=== PATIENT | male | born 1975 | race Caucasian/White ===

== ENCOUNTER 2021-11-24 23:24 | Emergency (ER) | payer MEDICARE, MEDICAID ==
[~2021-11-24] VITALS: Ht 198.1 cm; Wt 207.6 kg
[~2021-11-24 23:24] MED LIST: CYCL10TA3 PO; DRON40TA PO; GABA250S PO; GABA300C2 PO; GLYB5TAB5 PO; IMIT50TA PO; JANU100T PO; METF500T PO; OMEP20CA3 PO; OMEPPOW18 XX; PERC7.5T12 PO; REQU1TAB16 PO; SLOWTAB3 PO; TRAZ150T PO; VICO5TAB PO; XARE20TA PO
[2021-11-24 23:30] VITALS: BP 149/76
[2021-11-24] MEDS ORDERED: LANTINJ4 SC (23:36)
[2021-11-24] MEDS ORDERED: BACL10TA2 PO (23:36)
[2021-11-25] MEDS ORDERED: methocarbamoL 750 MG TAB PO ONE (00:35)
[2021-11-25] MEDS ORDERED: LIDOCAINE 5% (LIDODERM) PATCH TD ONE (00:35)
[2021-11-25] MEDS ORDERED: **NOTE PATIENT COMMENT** MISC XX SCH (21:00)
== END 2021-11-25 01:10 | disposition home or self-care (01) ==
LOC: M ED 23:24
DX: M54.50 Low back pain, unspecified (principal); M25.562 Pain in left knee; Z53.9 Procedure and treatment not carried out, unspecified reason; I48.91 Unspecified atrial fibrillation; I10 Essential (primary) hypertension; G43.909 Migraine, unspecified, not intractable, without status migrainosus; F32.A Depression, unspecified; Z88.0 Allergy status to penicillin; Z79.84 Long term (current) use of oral hypoglycemic drugs; Z79.899 Other long term (current) drug therapy

== ENCOUNTER → 2022-12-15 | Outpatient (CLI) | payer MEDICARE, MEDICAID ==
[~2022-12-15] MED LIST changes: +BACL10TA2 PO; +LANTINJ4 SC
== END ==
LOC: M RAD 11:34
PROVIDERS: ATTEND Physician Assistant Medical
DX: R11.2 Nausea with vomiting, unspecified (principal); R10.13 Epigastric pain
CPT/HCPCS: 78264; A9541

== ENCOUNTER → 2023-10-05 | Outpatient (CLI) | payer MEDICARE, MEDICAID ==
[~2023-10-05] MED LIST changes: +ALBU8.5H INH; +ALEV220T22 PO; +BENZ200C70 PO; +DRON400T PO; +FAMO1TAB11 PO; +IMIT6KIT SC; +INSUHUMDS SC; +JARD1TAB PO; +LYRI200C PO; +MAGN64TASA PO; +METF500T13 PO; +METHACHOLINE KIT INH ONE; +METO25TA4 PO; +ONDA-83 PO; +OXYC10TA3 PO; +PANT40TA29 PO; +PRED20TA PO; +ROPI3TAB18 PO; +SUMA100T2 PO; +SYMB16INH INH; +TOPI100T9 PO; +TRAZ1TAB14 PO; +XARE10TA PO
[2023-10-11 16:22] LABS: ASPERGILLUS FUMIGATUS AB Negative (Negative); AUREOBASIDIUM PULLULANS Negative (Negative); MICROPOLYSPORA FAENI AB Negative (Negative); PIGEON SERUM AB Negative (Negative); THERMOACTINOMYCES SACCHARI Negative (Negative); THERMOACTINOMYCES VULGARIS Negative (Negative)
== END ==
LOC: M CARPUL 14:56
PROVIDERS: ATTEND Nurse Practitioner Family
DX: R91.8 Other nonspecific abnormal finding of lung field (principal); R09.02 Hypoxemia; R05.9 Cough, unspecified

== ENCOUNTER 2023-10-08 06:18 | Day surgery (SDC) | payer MEDICARE, MEDICAID ==
[~2023-10-08] VITALS: Ht 198.1 cm; Wt 184.2 kg
[~2023-10-08 06:18] MED LIST changes: -METHACHOLINE KIT INH ONE
[2023-10-08] MEDS ORDERED: LR 1,000 ML IV SCH ×2 (06:40→10:00)
[2023-10-08] MEDS ORDERED: ROCURONIUM BROMIDE 50MG/5ML VIAL As Ordered ONE (07:10)
[2023-10-08] MEDS ORDERED: LIDOCAINE 2% 100MG/5ML SDV (FOR ANES.) As Ordered ONE (07:10)
[2023-10-08] MEDS ORDERED: SUGAMMADEX SODIUM 500 MG/5 ML VIAL (BRIDION) As Ordered ONE (07:10)
[2023-10-08] MEDS ORDERED: propofoL 200 MG/20 ML VIAL As Ordered ONE ×2 (07:10→08:25)
[2023-10-08] MEDS ORDERED: ONDANSETRON 4MG 2ML VIAL As Ordered ONE (07:11)
[2023-10-08] MEDS ORDERED: MIDAZOLAM INJ 2MG/2ML VIAL As Ordered ONE (07:14)
[2023-10-08] MEDS ORDERED: fentaNYL 100 MCG/2 ML INJECTION As Ordered ONE ×2 (07:15→09:14)
[2023-10-08] MEDS ORDERED: LIDOCAINE W/EPINEPHRINE 1% 20ML VIAL As Ordered ONE (08:21)
[2023-10-08] MEDS ORDERED: dexmedeTOMIDine (4MCG/ML)200MCG/50ML BTL (PRECEDEX) As Ordered ONE (08:53)
[2023-10-08] MEDS ORDERED: ACETAMINOPHEN 1000MG 100ML IV BAG As Ordered ONE ×2 (08:54→10:20)
[2023-10-08] MEDS ORDERED: ONDANSETRON 4MG 2ML VIAL IV PRN (10:00)
[2023-10-08] MEDS ORDERED: fentaNYL 100 MCG/2 ML INJECTION IV PRN (10:00)
[2023-10-08] MEDS ORDERED: oxyCODONE 5MG TAB PO PRN (10:00)
[2023-10-08] MEDS ORDERED: HYDROMORPHONE HCL 0.5 MG/ 0.5 ML SYRINGE IV PRN (10:00)
[2023-10-08 11:45] VITALS: BP 153/84; TEMP 97.9; O2SAT 97
== END 2023-10-08 11:45 | disposition home or self-care (01) ==
LOC: M SDC 06:18
PROVIDERS: ATTEND Dentist Oral and Maxillofacial Surgery
DX: K02.9 Dental caries, unspecified (principal); I48.91 Unspecified atrial fibrillation; I10 Essential (primary) hypertension; E10.43 Type 1 diabetes mellitus with diabetic autonomic (poly)neuropathy; K31.84 Gastroparesis; Z79.84 Long term (current) use of oral hypoglycemic drugs; Z79.899 Other long term (current) drug therapy; Z79.4 Long term (current) use of insulin; Z88.0 Allergy status to penicillin; G47.30 Sleep apnea, unspecified; Z79.01 Long term (current) use of anticoagulants; Z87.891 Personal history of nicotine dependence
CPT/HCPCS: 88300; D7140; D9223; J0131; J1100; J2250; J2405; J3010

== ENCOUNTER → 2023-10-14 | Outpatient (CLI) | payer MEDICARE, MEDICAID ==
[~2023-10-14] MED LIST changes: +METHACHOLINE KIT INH ONE
== END ==
LOC: M CARPUL 14:51
PROVIDERS: ATTEND Nurse Practitioner Family
DX: R06.02 Shortness of breath (principal); R05.9 Cough, unspecified
CPT/HCPCS: 94070; 95070; J7674

== ENCOUNTER 2023-12-26 17:38 | Emergency (ER) | payer MEDICARE, MEDICAID ==
[~2023-12-26] VITALS: Ht 198.1 cm; Wt 190.0 kg
[~2023-12-26 17:38] MED LIST changes: -METHACHOLINE KIT INH ONE
[2023-12-26] MEDS: NS 1,000 ML IV ONE (19:14)
[2023-12-26] MEDS: MORPHINE 4 MG/ML 1ML VIAL IV ONE (19:15)
[2023-12-26] MEDS: ONDANSETRON 4MG 2ML VIAL IV ONE (19:15)
[2023-12-26 19:18] LABS: HEMOGLOBIN 12.2 g/dl (13.5-17.5); WHITE BLOOD COUNT 9.2 10^3/uL (4.0-10.0)
[2023-12-26 19:19] LABS: BASO # 0.1 10^3/uL (0.0-0.2); BASO % 0.9 % (0.0-1.0); EOS # 0.1 10^3/uL (0.0-0.5); HEMATOCRIT 42.2 % (42.0-52.0); LYMPH # 2.1 10^3/uL (1.5-5.0); LYMPH % 22.5 % (24.0-44.0); MEAN CORPUSCULAR HEMOGLOBIN 19.7 pg (27.0-33.0); MEAN CORPUSCULAR HGB CONC 28.9 g/dl (32.0-36.5); MEAN CORPUSCULAR VOLUME 68.1 fl (80.0-96.0); MONO # 0.8 10^3/uL (0.0-0.8); MONO % 8.1 % (2.0-8.0); NEUTROPHILS # 6.2 10^3/uL (1.5-8.5); NEUTROPHILS % 67.3 % (36.0-66.0); PLATELET COUNT, AUTOMATED 222 10^3/uL (150-450)
[2023-12-26 19:37] LABS: LIPASE 41 U/L (12-53)
[2023-12-26 19:40] LABS: ALBUMIN 3.9 G/DL (3.2-5.2); ALKALINE PHOSPHATASE 66 U/L (46-116); ALT/SGPT 14 U/L (7.0-40); AST/SGOT 22 U/L (<34); BILIRUBIN,DIRECT 0.2 MG/DL (<0.4); BILIRUBIN,TOTAL 0.4 MG/DL (0.3-1.2); BLOOD UREA NITROGEN 12 MG/DL (9-23); CALCIUM LEVEL 9.2 MG/DL (8.5-10.1); CARBON DIOXIDE LEVEL 18 MMOL/L (20-31); CHLORIDE LEVEL 112 MMOL/L (98-107); CREATININE FOR GFR 1.03 MG/DL (0.70-1.30); GLOMERULAR FILTRATION RATE > 60.0 (>60); GLUCOSE, FASTING 140 MG/DL (60-100); POTASSIUM SERUM 3.9 MMOL/L (3.5-5.1); SODIUM LEVEL 139 MMOL/L (136-145); TOTAL PROTEIN 7.1 G/DL (5.7-8.2)
[2023-12-26] MEDS ORDERED: ISOVUE-370 76% 100ML VIAL As Ordered ONE (19:50)
[2023-12-26 20:51] VITALS: BP 133/87; TEMP 96.3; O2SAT 100
[2023-12-26] MEDS ORDERED: LIDO5DIS41 TOP (21:01)
[2023-12-26] MEDS ORDERED: METH-1165 PO (21:01)
[2023-12-26] MEDS: LIDOCAINE 5% (LIDODERM) PATCH TD ONE (21:09)
== END 2023-12-26 21:13 | disposition home or self-care (01) ==
LOC: M ED 17:38
DX: M54.32 Sciatica, left side (principal); M54.50 Low back pain, unspecified; I10 Essential (primary) hypertension; E11.9 Type 2 diabetes mellitus without complications; F41.9 Anxiety disorder, unspecified; F32.A Depression, unspecified; F12.10 Cannabis abuse, uncomplicated; Z87.891 Personal history of nicotine dependence; Z86.79 Personal history of other diseases of the circulatory system; Z79.52 Long term (current) use of systemic steroids; Z79.4 Long term (current) use of insulin; Z79.899 Other long term (current) drug therapy; Z79.1 Long term (current) use of non-steroidal anti-inflammatories (NSAID)
CPT/HCPCS: 74177; 80048; 80076; 81001; 83690; 85025; 96361; 96374; 99284; J2405; Q9967

== ENCOUNTER → 2024-02-09 | Outpatient (CLI) | payer MEDICARE, MEDICAID ==
[~2024-02-09] MED LIST changes: +LIDO5DIS41 TOP; +METH-1165 PO
[2024-02-09 15:57] LABS: IMMUNOGLOBULIN A 370.1 MG/DL (40-350); IMMUNOGLOBULIN G 1170 MG/DL (650-1600)
== END ==
LOC: M LAB 14:10
PROVIDERS: ATTEND Nurse Practitioner Family
DX: J47.9 Bronchiectasis, uncomplicated (principal)

== ENCOUNTER 2024-03-13 15:02 | Emergency (ER) | payer MEDICARE, MEDICAID ==
[~2024-03-13] VITALS: Ht 198.1 cm; Wt 180.1 kg
[2024-03-13 15:04] VITALS: BP 141/86; TEMP 96.8; O2SAT 98
== END 2024-03-13 17:15 | disposition left against medical advice (07) ==
LOC: M ED 15:02
DX: Z53.21 Procedure and treatment not carried out due to patient leaving prior to being seen by health care provider (principal)

== ENCOUNTER 2024-07-06 11:37 | Emergency (ER) | payer MEDICARE, MEDICAID ==
[~2024-07-06] VITALS: Ht 198.1 cm; Wt 213.8 kg
[2024-07-06 11:41] VITALS: BP 140/90; TEMP 96.6; O2SAT 96
== END 2024-07-06 11:54 | disposition left against medical advice (07) ==
LOC: M ED 11:37
DX: Z53.21 Procedure and treatment not carried out due to patient leaving prior to being seen by health care provider (principal)

== ENCOUNTER 2024-07-13 18:43 | Emergency (ER) | payer MEDICARE, MEDICAID ==
[~2024-07-13] VITALS: Ht 198.1 cm; Wt 214.9 kg
[2024-07-13 22:36] LABS: VENOUS BASE EXCESS -1.4 (-2.0-2.0); VENOUS HCO3 24.7 MMOL/L (23.0-27.0); VENOUS PARTIAL PRESSURE CO2 46.5 mmHg (38.0-50.0); VENOUS PARTIAL PRESSURE O2 51.9 mmHg (30.0-50.0); VENOUS PH 7.343 UNITS (7.330-7.430); VENOUS STANDARD HCO3 23.1 MMOL/L; VENOUS TOTAL CO2 26.1 MMOL/L (24.0-28.0)
[2024-07-13 22:41] LABS: BASO # 0.1 10^3/uL (0.0-0.2); BASO % 1.2 % (0.0-1.0); EOS # 0.3 10^3/uL (0.0-0.5); EOS % 4.3 % (0.0-3.0); HEMATOCRIT 47.1 % (42.0-52.0); HEMOGLOBIN 14.3 g/dl (13.5-17.5); LYMPH # 1.9 10^3/uL (1.5-5.0); MEAN CORPUSCULAR HEMOGLOBIN 24.6 pg (27.0-33.0); MEAN CORPUSCULAR HGB CONC 30.4 g/dl (32.0-36.5); MEAN CORPUSCULAR VOLUME 81.1 fl (80.0-96.0); MONO # 0.4 10^3/uL (0.0-0.8); MONO % 6.5 % (2.0-8.0); NEUTROPHILS % 59.7 % (36.0-66.0); PLATELET COUNT, AUTOMATED 171 10^3/uL (150-450); RED BLOOD COUNT 5.81 10^6/uL (4.30-6.10); WHITE BLOOD COUNT 6.8 10^3/uL (4.0-10.0)
[2024-07-13 22:53] LABS: INR 1.32
[2024-07-13 23:13] LABS: ALBUMIN 3.5 G/DL (3.2-5.2); ALKALINE PHOSPHATASE 72 U/L (46-116); ALT/SGPT 14 U/L (7.0-40); AST/SGOT 23 U/L (<34); BILIRUBIN,DIRECT 0.1 MG/DL (<0.4); BILIRUBIN,TOTAL 0.4 MG/DL (0.3-1.2); BLOOD UREA NITROGEN 13 MG/DL (9-23); CARBON DIOXIDE LEVEL 26 MMOL/L (20-31); CHLORIDE LEVEL 111 MMOL/L (98-107); CREATININE FOR GFR 0.87 MG/DL (0.70-1.30); GLOMERULAR FILTRATION RATE > 60.0 (>60); GLUCOSE, FASTING 135 MG/DL (60-100); MAGNESIUM LEVEL 1.7 MG/DL (1.8-2.4); POTASSIUM SERUM 4.7 MMOL/L (3.5-5.1); SODIUM LEVEL 142 MMOL/L (136-145); TOTAL PROTEIN 6.8 G/DL (5.7-8.2)
[2024-07-13 23:16] LABS: THYROID STIMULATING HORMONE 3.132 uIU/ML (0.55-4.78)
[2024-07-13] MEDS: LIDOCAINE 1% MDV 20ML VIAL SC ONE (23:42)
[2024-07-13] MEDS: METOPROLOL TART 25 MG TABLET PO ONE (23:43)
[2024-07-13] MEDS: RIVAROXABAN 20MG TAB (XARELTO) PO ONE (23:43)
[2024-07-13] MEDS: MAGNESIUM OXIDE 400MG TAB (MAG-OX) PO ONE (23:43)
[2024-07-13] MEDS: DRONEDARONE 400 MG TAB (MULTAQ) PO ONE (23:54)
[2024-07-14 00:03] LABS: THYROXINE (T4) 11.5 UG/DL (4.5-10.9)
[2024-07-14 00:06] LABS: CPK CREATINE PHOSPHOKINASE 160 U/L (46-171); MB/CK RELATIVE INDEX 1.87 (< OR =4)
[2024-07-14 00:11] VITALS: TEMP 97.6
[2024-07-14] MEDS: BOOSTRIX VACCINE (TETANUS/DIPHTH/ACEL. PERTUSSIS) 0.5ML SYR IM ONE (00:20)
[2024-07-14 01:01] VITALS: BP 144/76; O2SAT 98
[2024-07-14] MEDS ORDERED: LEVO1TAB40 PO (01:21)
[2024-07-14] MEDS: LevoFLOXacin 750 MG TABLET PO ONE (01:32)
== END 2024-07-14 01:17 | disposition home or self-care (01) ==
LOC: M ED 18:43
DX: S61.412A Laceration without foreign body of left hand, initial encounter (principal); J18.9 Pneumonia, unspecified organism; I48.20 Chronic atrial fibrillation, unspecified; R60.9 Edema, unspecified; E11.9 Type 2 diabetes mellitus without complications; I10 Essential (primary) hypertension; K21.9 Gastro-esophageal reflux disease without esophagitis; J45.909 Unspecified asthma, uncomplicated; G47.30 Sleep apnea, unspecified; G43.909 Migraine, unspecified, not intractable, without status migrainosus; F41.9 Anxiety disorder, unspecified; F32.A Depression, unspecified; F12.10 Cannabis abuse, uncomplicated; F10.10 Alcohol abuse, uncomplicated; Z88.0 Allergy status to penicillin; Z86.79 Personal history of other diseases of the circulatory system; Z23 Encounter for immunization; Z79.52 Long term (current) use of systemic steroids; Z79.4 Long term (current) use of insulin; Z79.899 Other long term (current) drug therapy; W26.8XXA Contact with other sharp object(s), not elsewhere classified, initial encounter; Y92.009 Unspecified place in unspecified non-institutional (private) residence as the place of occurrence of the external cause; Y93.89 Activity, other specified; Y99.9 Unspecified external cause status

== ENCOUNTER → 2024-11-07 | Outpatient (CLI) | payer MEDICARE, MEDICAID ==
[~2024-11-07] MED LIST changes: +E-Z-GAS II EFFERVESCENT PACKET (SODIUM BICARB./CITRIC ACID/SIMETHICONE) As Ordered ONE; +E-Z-HD 98% w/w 340GM SUSP BTL As Ordered ONE; +E-Z-PAQUE 96% w/w SUSP 176GM BTL As Ordered ONE; +LEVO1TAB40 PO
== END ==
LOC: M RAD 07:46
PROVIDERS: ATTEND Physician Assistant Medical
DX: R11.2 Nausea with vomiting, unspecified (principal); Z53.9 Procedure and treatment not carried out, unspecified reason

== ENCOUNTER → 2024-12-18 | Outpatient (REF) | payer MEDICARE, MEDICAID ==
[~2024-12-18] MED LIST changes: -E-Z-GAS II EFFERVESCENT PACKET (SODIUM BICARB./CITRIC ACID/SIMETHICONE) As Ordered ONE; -E-Z-HD 98% w/w 340GM SUSP BTL As Ordered ONE; -E-Z-PAQUE 96% w/w SUSP 176GM BTL As Ordered ONE
== END ==
LOC: M SFHCPLAZ 14:48
PROVIDERS: ATTEND Physician Assistant Medical
DX: R30.0 Dysuria (principal)

== ENCOUNTER 2025-02-12 12:43 | Emergency (ER) | payer MEDICARE, MEDICAID ==
[~2025-02-12] VITALS: Ht 198.1 cm; Wt 204.1 kg
[~2025-02-12 12:43] MED LIST changes: +LIDO1ADH93 TOP; -LIDO5DIS41 TOP; +TOPI-257 PO; -TOPI100T9 PO
[2025-02-12 14:16] LABS: VENOUS BASE EXCESS -3.1 (-2.0-2.0); VENOUS HCO3 22.1 MMOL/L (23.0-27.0); VENOUS O2 SATURATION 89.7 % (60.0-80.0); VENOUS PARTIAL PRESSURE CO2 40.2 mmHg (38.0-50.0); VENOUS PARTIAL PRESSURE O2 57.6 mmHg (30.0-50.0); VENOUS PH 7.358 UNITS (7.330-7.430); VENOUS STANDARD HCO3 21.7 MMOL/L; VENOUS TOTAL CO2 23.3 MMOL/L (24.0-28.0)
[2025-02-12 14:19] LABS: BASO # 0.1 10^3/uL (0.0-0.2); BASO % 0.6 % (0.0-1.0); EOS % 0.2 % (0.0-3.0); HEMATOCRIT 51.3 % (42.0-52.0); LYMPH # 1.7 10^3/uL (1.5-5.0); LYMPH % 15.9 % (24.0-44.0); MEAN CORPUSCULAR HEMOGLOBIN 28.2 pg (27.0-33.0); MEAN CORPUSCULAR HGB CONC 33.1 g/dl (32.0-36.5); MEAN CORPUSCULAR VOLUME 85.1 fl (80.0-96.0); MONO # 0.5 10^3/uL (0.0-0.8); MONO % 4.6 % (2.0-8.0); NEUTROPHILS # 8.1 10^3/uL (1.5-8.5); NEUTROPHILS % 78.2 % (36.0-66.0); PLATELET COUNT, AUTOMATED 156 10^3/uL (150-450); RED BLOOD COUNT 6.03 10^6/uL (4.30-6.10); WHITE BLOOD COUNT 10.4 10^3/uL (4.0-10.0)
[2025-02-12 14:21] LABS: APPEARANCE, URINE CLEAR (CLEAR); BACTERIA, URINE AUTO NEGATIVE (NEGATIVE); BILIRUBIN, URINE AUTO NEGATIVE (NEGATIVE); BLOOD, URINE BLOOD 1+ (NEGATIVE); COLOR, URINE YELLOW (YELLOW); GLUCOSE, URINE (UA) AUTO 3+ mg/dL (NEGATIVE); KETONE, URINE AUTO 2+ mg/dL (NEGATIVE); LEUKOCYTE ESTERASE, URINE AUTO NEGATIVE (NEGATIVE); NITRITE, URINE AUTO NEGATIVE (NEGATIVE); PROTEIN, URINE AUTO NEGATIVE (NEGATIVE); RBC, URINE AUTO 0 /HPF (0-3); SPECIFIC GRAVITY URINE AUTO 1.035 (1.002-1.035); SQUAMOUS EPITHELIAL CELL UR AU 0 /HPF (0-6); UROBILINOGEN, URINE AUTO 0.2 mg/dL (0.0-2.0); WBC, URINE AUTO 0 /HPF (0-3)
[2025-02-12 14:42] LABS: ALBUMIN 3.8 G/DL (3.2-5.2); ALKALINE PHOSPHATASE 72 U/L (40-129); ALT/SGPT 14 U/L (7.0-40); AST/SGOT 17 U/L (<34); BILIRUBIN,DIRECT 0.2 MG/DL (<0.4); BILIRUBIN,TOTAL 0.6 MG/DL (0.3-1.2); BLOOD UREA NITROGEN 13 MG/DL (9-23); CALCIUM LEVEL 9.5 MG/DL (8.5-10.1); CARBON DIOXIDE LEVEL 23 MMOL/L (20-31); CHLORIDE LEVEL 105 MMOL/L (98-107); CREATININE FOR GFR 0.95 MG/DL (0.70-1.30); GLOMERULAR FILTRATION RATE > 90.0 (>56); GLUCOSE, FASTING 148 MG/DL (60-100); SODIUM LEVEL 140 MMOL/L (136-145); TOTAL PROTEIN 7.2 G/DL (5.7-8.2)
[2025-02-12 15:43] LABS: LIPASE 24 U/L (12-53)
[2025-02-12] MEDS ORDERED: ISOVUE-370 76% 100ML VIAL As Ordered ONE (15:45)
[2025-02-12] MEDS: NS 500 ML IV ONE (15:57)
[2025-02-12] MEDS: FAMOTIDINE 20MG/2ML VIAL IVP ONE (15:57)
[2025-02-12] MEDS: PROMETHAZINE 25MG/ML 1ML VIAL IV ONE (15:57)
[2025-02-12 16:14] LABS: HEMOGLOBIN A1c 7.7 % (4.0-6.0)
[2025-02-12] MEDS: DICYCLOMINE INJ 20MG/2ML IM ONE (17:08)
[2025-02-12] MEDS ORDERED: ONDA-282 PO (17:59)
[2025-02-12] MEDS ORDERED: SUCR1SS PO (17:59)
[2025-02-12 18:07] VITALS: BP 141/95; TEMP 96.3; O2SAT 96
== END 2025-02-12 18:15 | disposition home or self-care (01) ==
LOC: M ED 12:43
DX: K31.84 Gastroparesis (principal); I51.7 Cardiomegaly; J44.9 Chronic obstructive pulmonary disease, unspecified; E78.5 Hyperlipidemia, unspecified; I10 Essential (primary) hypertension; E11.9 Type 2 diabetes mellitus without complications; Z86.79 Personal history of other diseases of the circulatory system; Z88.0 Allergy status to penicillin; Z79.52 Long term (current) use of systemic steroids; Z79.899 Other long term (current) drug therapy; Z79.4 Long term (current) use of insulin; Z79.83 Long term (current) use of bisphosphonates
CPT/HCPCS: 71045; 74177; 80048; 80076; 81001; 82803; 83036; 83605; 83690; 85025; 96361; 96372; 96374; 99284; J0500; J1308; J2550; Q9967

== ENCOUNTER → 2025-05-14 | Outpatient (CLI) | payer MEDICARE, MEDICAID ==
[~2025-05-14] MED LIST changes: +ONDA-282 PO; +SUCR1SS PO
== END ==
LOC: M PLAIMG 13:37
PROVIDERS: ATTEND Family Medicine
DX: M53.3 Sacrococcygeal disorders, not elsewhere classified (principal)

== ENCOUNTER → 2025-07-25 | Outpatient (CLI) | payer MEDICARE, MEDICAID | LOC: M PLAIMG 16:00 | PROVIDERS: ATTEND Nurse Practitioner Family | DX: M96.1 Postlaminectomy syndrome, not elsewhere classified (principal) ==

== ENCOUNTER → 2025-08-06 | Outpatient (CLI) | payer MEDICARE, MEDICAID | LOC: M PLAIMG 14:33 | PROVIDERS: ATTEND Physician Assistant | DX: J47.9 Bronchiectasis, uncomplicated (principal) ==

== ENCOUNTER → 2025-08-29 | Outpatient (CLI) | payer MEDICARE, MEDICAID | LOC: M RAD 14:35 | PROVIDERS: ATTEND Nurse Practitioner Family | DX: M16.0 Bilateral primary osteoarthritis of hip (principal); M51.362 Other intervertebral disc degeneration, lumbar region with discogenic back pain and lower extremity pain; M43.16 Spondylolisthesis, lumbar region ==

== ENCOUNTER 2025-09-22 14:12 | Emergency (ER) | payer MEDICARE, MEDICAID ==
[~2025-09-22] VITALS: Ht 198.1 cm; Wt 200.0 kg
[2025-09-22 15:11] LABS: BASO # 0.1 10^3/uL (0.0-0.2); BASO % 0.6 % (0.0-1.0); EOS # 0.0 10^3/uL (0.0-0.5); EOS % 0.0 % (0.0-3.0); LYMPH # 1.9 10^3/uL (1.5-5.0); LYMPH % 12.5 % (24.0-44.0); MONO # 0.5 10^3/uL (0.0-0.8); MONO % 3.6 % (2.0-8.0); NEUTROPHILS # 12.3 10^3/uL (1.5-8.5); NEUTROPHILS % 83.0 % (36.0-66.0); PLATELET COUNT, AUTOMATED 203 10^3/uL (150-450)
[2025-09-22 15:38] LABS: ALT/SGPT 15.0 U/L (7.0-40); AST/SGOT 26.0 U/L (<34); CALCIUM LEVEL 9.5 MG/DL (8.5-10.1); CARBON DIOXIDE LEVEL 13.0 MMOL/L (20-31); CHLORIDE LEVEL 102.0 MMOL/L (98-107); CREATININE FOR GFR 1.1 MG/DL (0.70-1.30); GLOMERULAR FILTRATION RATE 81.8 (>56); POTASSIUM SERUM 4.6 MMOL/L (3.5-5.1); SODIUM LEVEL 136.0 MMOL/L (136-145)
[2025-09-22] MEDS: NS (Normal Saline) 0.9% 1,000 ML IV ONE ×3 (15:55→18:45)
[2025-09-22] MEDS: ONDANSETRON 4MG/2ML VIAL IV ONE (15:55)
[2025-09-22] MEDS ORDERED: ISOVUE-370 76% 100 ML VIAL As Ordered ONE (16:56)
[2025-09-22] MEDS: KETOROLAC 30 MG/ML 1 ML VIAL IV ONE (16:59)
[2025-09-22] MEDS: ACETAMINOPHEN *IV* 1,000 MG in IV 1 EA IV ONE (18:45)
[2025-09-22 20:34] LABS: KETONE, URINE AUTO RFX 2+ mg/dL (NEGATIVE); LEUKOCYTE ESTERASE UR AUTO RFX NEGATIVE (NEGATIVE); NITRITE, URINE AUTO RFX NEGATIVE (NEGATIVE); RBC, URINE AUTO RFX 0 /HPF (0-3); SQUAM EPITHELIAL CELL UR AURFX 0 /HPF (0-6); WBC, URINE AUTO RFX 0 /HPF (0-3)
[2025-09-22 22:04] LABS: CALCIUM LEVEL 8.2 MG/DL (8.5-10.1); CARBON DIOXIDE LEVEL 17.0 MMOL/L (20-31); CHLORIDE LEVEL 108.0 MMOL/L (98-107); CREATININE FOR GFR 1.13 MG/DL (0.70-1.30); GLOMERULAR FILTRATION RATE 79.2 (>56); POTASSIUM SERUM 5.5 MMOL/L (3.5-5.1); SODIUM LEVEL 140.0 MMOL/L (136-145)
[2025-09-22] MEDS ORDERED: REGL10TA6 PO (22:12)
[2025-09-22 22:19] VITALS: BP 137/67; TEMP 98.6; O2SAT 100
[2025-09-28 10:36] LABS: SOFIA COVID ANTIGEN NEGATIVE (NEGATIVE)
== END 2025-09-22 22:21 | disposition home or self-care (01) ==
LOC: M ED 15:21
DX: R10.9 Unspecified abdominal pain (principal); R11.2 Nausea with vomiting, unspecified; I48.91 Unspecified atrial fibrillation; I10 Essential (primary) hypertension; J44.9 Chronic obstructive pulmonary disease, unspecified; Z88.0 Allergy status to penicillin; Z79.2 Long term (current) use of antibiotics; Z79.51 Long term (current) use of inhaled steroids; Z79.4 Long term (current) use of insulin; Z79.84 Long term (current) use of oral hypoglycemic drugs; Z79.01 Long term (current) use of anticoagulants; Z79.899 Other long term (current) drug therapy
CPT/HCPCS: 74177; 80048; 80076; 81001; 83690; 85025; 87428; 96374; 96375; 99284; J0131; J1885; J2405; J2765; Q9967